=== PATIENT | female | born 1995 | race Caucasian/White ===

== ENCOUNTER 2021-01-02 08:26 | Emergency (ER) | payer BC ==
[~2021-01-02] VITALS: Ht 162.6 cm; Wt 63.6 kg
[2021-01-02 09:28] LABS: BASO % 0.1 % (0.0-2.0); EOS % 0.1 % (0-4.0); GRAN # 8.4 (1.4-6.5); GRAN % 88.1 % (42.2-75.2); LYMPH # 0.3 (1.2-3.4); LYMPH % 2.8 % (20.0-51.0); MEAN CELL VOLUME 87 fl (80.0-100.0); MEAN CORPUSCULAR HGB CONC 31 g/dl (33.0-37.0); MEAN PLATELET VOLUME 10.4 fl (7.4-10.4); MONO # 0.8 (0.1-0.6); MONO % 8.1 % (1.7-9.3); PLATELET COUNT 167 K/mm3 (130-400); RED BLOOD COUNT 3.63 M/mm3 (4.10-5.30); REDCELL DISTRIBUTION WIDTH-CV 13.3 % (11.5-14.5)
[2021-01-02 09:31] LABS: HEMATOCRIT 31.7 % (37.0-47.0); HEMOGLOBIN 9.8 g/dl (12.5-16.0); MEAN CORPUSCULAR HEMOGLOBIN 27 pg (27.0-31.0)
[2021-01-02 09:44] LABS: ALBUMIN 4.2 gm/dL (3.5-5.0); BILIRUBIN,TOTAL 0.7 mg/dL (0.2-1.2); CALCIUM 7.1 mg/dL (8.4-10.2); CREATININE, serum 1.58 mg/dL (0.57-1.11); POTASSIUM 4.5 mmol/L (3.5-4.5); TOTAL PROTEIN 6.8 gm/dL (6.2-8.1)
[2021-01-02 11:31] LABS: COLLECTION METHOD CLEAN CATCH
[2021-01-02 11:49] LABS: MUCOUS Present /lpf; PH 5 (5-8); URINE APPEARANCE Cloudy; URINE BACTERIA Moderate /hpf; URINE BILIRUBIN Negative (NEGATIVE); URINE BLOOD 1+ (NEGATIVE); URINE COLOR Yellow; URINE GLUCOSE Negative (NEGATIVE); URINE KETONE Negative (NEGATIVE); URINE LEUKOCYTE ESTERASE 3+ (NEGATIVE); URINE NITRATE Negative (NEGATIVE); URINE PROTEIN(semi-quant) 1+ (NEGATIVE); URINE UROBILINOGEN Negative (NEGATIVE)
[2021-01-02] MEDS ORDERED: LIPITOR 40MG TA40 MG PO (15:15)
[2021-01-02] MEDS ORDERED: PROGRAF 1MG1 MG PO (15:16)
[2021-01-02] MEDS ORDERED: COREG12.5 MG PO (15:16)
[2021-01-02] MEDS ORDERED: CELLCEPT 5500 MG/TAB PO (15:17)
[2021-01-02] MEDS ORDERED: CALCIUM CITRAT200 M2 PO (15:18)
[2021-01-02] MEDS ORDERED: EVOCLIN1% TOP (15:19)
[2021-01-02] MEDS ORDERED: PROTONIX 40MG T40 MG PO (15:19)
[2021-01-02] MEDS ORDERED: ASPIRIN 81M81 MG/TA2 PO (15:19)
[2021-01-02] MEDS ORDERED: PREDNISONE 5MG5 MG PO (15:19)
[2021-01-02 16:09] VITALS: BP 116/68; PULSE 92; TEMP 99.2
== END 2021-01-02 16:18 | disposition short-term general hospital (02) ==
LOC: COL.ER 08:26
PROVIDERS: Personal Emergency Response Attendant
DX: T86.13 Kidney transplant infection (principal); N39.0 Urinary tract infection, site not specified
CPT/HCPCS: J0696; J1170; J1200; J2405; J2930; J3010; J7030; Q9967